=== PATIENT | male | born 1960 | race Caucasian/White ===

== ENCOUNTER 2020-10-08 08:32 | Outpatient (REF) | payer BC, SELFPAY ==
[2020-10-08 11:46] LABS: Alanine Aminotransferase 19 U/L (0-40); Albumin Level 4.2 g/dL (3.5-5.0); Alkaline Phosphatase 44 U/L (39-117); Anion Gap 12 (12-20); Aspartate Amino Transferase 23 U/L (5-37); Bilirubin Total 0.4 mg/dL (0.0-1.0); Blood Urea Nitrogen 15 mg/dL (9-16); Calcium 8.4 mg/dL (8.4-10.2); Carbon Dioxide 26 mmol/L (22-29); Chloride 107 mmol/L (96-108); Cholesterol 190 mg/dL; Estimated Glomerular Filt Rate > 60; Glucose Fasting 98 mg/dL (60-99); HDL Cholesterol 51 mg/dL; LDL Cholesterol Calculated 128 mg/dl; Potassium 4.2 mmol/l (3.3-5.1); Sodium 141 mmol/L (135-145); Total Protein 6.4 g/dL (6.5-8.0); Triglycerides 58 mg/dL
[2020-10-08 12:10] LABS: Prostate Specific Antigen Scr 0.65 ng/mL (<0.05-4.0); TSH reflex Free T4 1.34 mIU/mL (0.32-4.0)
[2020-10-08 12:24] LABS: Vitamin B12 928 pg/mL (200-900)
== END 2020-10-08 08:33 | disposition home or self-care (01) ==
LOC: HO.HMGCLDS 08:32
PROVIDERS: PCP Nurse Practitioner Family; Visit Provider Nurse Practitioner Family
DX: E53.8 Deficiency of other specified B group vitamins (principal); Z12.5 Encounter for screening for malignant neoplasm of prostate; Z00.00 Encounter for general adult medical examination without abnormal findings
CPT/HCPCS: 80053; 80061; 82607; 82746; 84153; 84443

== ENCOUNTER 2022-11-17 09:05 | Outpatient (REF) | payer OTHER, SELFPAY ==
[2022-11-17 11:37] LABS: MANUAL DIFF FLAG NO
[2022-11-17 11:50] LABS: Basophils Percent Auto 0.5 % (0-2); Eosinophils Absolute Auto 0.1 X10*3/uL (0.0-0.4); Eosinophils Percent Auto 2.3 % (0-4); Hematocrit 43.2 % (42.0-52.0); Hemoglobin 14.4 g/dl (14.0-18.0); Lymphocytes Percent Auto 27.2 % (20-40); Mean Corpuscular HGB Conc 33.3 g/dl (31.0-36.0); Mean Platelet Volume 10.8 fL (9.4-12.4); Monocytes Absolute Auto 0.6 X10*3/uL (0.1-1.2); Monocytes Percent Auto 14.6 % (2-11); Neutrophils Absolute Auto 2.1 x10*3/uL (2.0-8.3); Neutrophils Percent Auto 55.4 % (45-73); Platelet Count 144 X10*3/uL (160-400); White Blood Count 3.8 X10*3/uL (4.8-10.8)
[2022-11-17 11:56] LABS: INTERNATIONAL NORM RATIO 0.9 (0.9-1.1); Prothrombin Time 10.6 SEC (10.0-13.1)
[2022-11-17 13:06] LABS: Vitamin B12 277 pg/mL (200-900)
[2022-11-17 13:09] LABS: Vitamin D 25-OH Total 20.8 ng/mL (>30)
== END 2022-11-17 09:06 | disposition home or self-care (01) ==
LOC: HO.HMGCLDS 09:05
PROVIDERS: PCP Internal Medicine; Visit Provider Internal Medicine
DX: R53.83 Other fatigue (principal); D68.51 Activated protein C resistance; S00.262A Insect bite (nonvenomous) of left eyelid and periocular area, initial encounter; W57.XXXA Bitten or stung by nonvenomous insect and other nonvenomous arthropods, initial encounter
CPT/HCPCS: 36415; 82306; 82607; 85025; 85610

== ENCOUNTER 2022-11-20 09:46 | Outpatient (REF) | payer OTHER, SELFPAY ==
[2022-11-20 11:41] LABS: Prothrombin Time 11.3 SEC (10.0-13.1)
== END 2022-11-20 09:47 | disposition home or self-care (01) ==
LOC: HO.HMGCLDS 09:46
PROVIDERS: PCP Internal Medicine; Visit Provider Internal Medicine
DX: I26.99 Other pulmonary embolism without acute cor pulmonale (principal)
CPT/HCPCS: 36415; 85610

== ENCOUNTER 2022-11-21 08:38 | Outpatient (REF) | payer OTHER, SELFPAY ==
[2022-11-21 11:31] LABS: INTERNATIONAL NORM RATIO 1.1 (0.9-1.1); Prothrombin Time 12.3 SEC (10.0-13.1)
== END 2022-11-21 08:39 | disposition home or self-care (01) ==
LOC: HO.HMGCLDS 08:38
PROVIDERS: Visit Provider Internal Medicine
DX: R53.83 Other fatigue (principal); D68.51 Activated protein C resistance
CPT/HCPCS: 36415; 85610

== ENCOUNTER 2022-11-24 07:28 | Outpatient (REF) | payer OTHER, SELFPAY ==
[2022-11-24 12:21] LABS: INTERNATIONAL NORM RATIO 1.5 (0.9-1.1); Prothrombin Time 17.4 SEC (10.0-13.1)
== END 2022-11-24 07:29 | disposition home or self-care (01) ==
LOC: HO.HMGCLDS 07:28
PROVIDERS: Visit Provider Internal Medicine
DX: R53.83 Other fatigue (principal); D68.51 Activated protein C resistance
CPT/HCPCS: 36415; 85610

== ENCOUNTER 2023-08-31 07:15 | Outpatient (REF) | payer OTHER, SELFPAY ==
[2023-08-31 11:17] LABS: Basophils Percent Auto 0.6 % (0-2); Eosinophils Absolute Auto 0.1 X10*3/uL (0.0-0.4); Eosinophils Percent Auto 2.3 % (0-4); Hematocrit 44.8 % (42.0-52.0); Imm Gran Abs Auto 0.01 X10*3/uL (0.00-0.03); Imm Gran Pct Auto 0.3 % (0.0-0.4); Lymphocytes Absolute Auto 1.1 X10*3/uL (1.2-4.9); Lymphocytes Percent Auto 31.4 % (20-40); MANUAL DIFF FLAG NO; Mean Corpuscular HGB Conc 33.5 g/dl (31.0-36.0); Mean Corpuscular Hemoglobin 32.1 pg (27.0-33.0); Mean Corpuscular Volume 95.7 fL (80.0-98.0); Mean Platelet Volume 10.9 fL (9.4-12.4); Monocytes Absolute Auto 0.5 X10*3/uL (0.1-1.2); Monocytes Percent Auto 13.3 % (2-11); Neutrophils Absolute Auto 1.8 x10*3/uL (2.0-8.3); Neutrophils Percent Auto 52.1 % (45-73); Platelet Count 134 X10*3/uL (160-400); Red Blood Count 4.68 X10*6/uL (4.60-5.80); White Blood Count 3.5 X10*3/uL (4.8-10.8)
[2023-08-31 11:31] LABS: Alanine Aminotransferase 18 U/L (0-40); Albumin Level 4.2 g/dL (3.5-5.0); Alkaline Phosphatase 45 U/L (39-117); Anion Gap 10 (12-20); Aspartate Amino Transferase 26 U/L (5-37); Bilirubin Total 0.7 mg/dL (0.0-1.0); Blood Urea Nitrogen 14 mg/dL (9-16); Carbon Dioxide 28 mmol/L (22-29); Chloride 107 mmol/L (96-108); Cholesterol 167 mg/dL (<200); Estimated Glomerular Filt Rate > 60; Glucose Fasting 85 mg/dL (60-99); HDL Cholesterol 46 mg/dL (>40); LDL Cholesterol Calculated 109 mg/dL (<100); Potassium 4.1 mmol/L (3.3-5.1); Sodium 141 mmol/L (135-145); Total Protein 6.6 g/dL (6.5-8.0); Triglycerides 61 mg/dL (<150)
[2023-08-31 11:54] LABS: Vitamin D 25-OH Total 32.5 ng/mL (>30)
[2023-08-31 12:01] LABS: Prostate Specific Antigen Scr 0.85 ng/mL (<0.05-4.0); Vitamin B12 321 pg/mL (200-900)
== END 2023-08-31 07:16 | disposition home or self-care (01) ==
LOC: HO.HMGCLDS 07:15
PROVIDERS: PCP Internal Medicine; Visit Provider Internal Medicine
DX: Z00.00 Encounter for general adult medical examination without abnormal findings (principal); Z12.5 Encounter for screening for malignant neoplasm of prostate; E78.5 Hyperlipidemia, unspecified; R53.83 Other fatigue; D68.51 Activated protein C resistance; E55.9 Vitamin D deficiency, unspecified
CPT/HCPCS: 36415; 80053; 80061; 82306; 82607; 84153; 85025

== ENCOUNTER 2023-12-29 13:06 | Outpatient (REF) | payer OTHER, SELFPAY ==
--- NOTE | ~2023-12-29 | XR_ITS ---
EXAMINATION: XR LUMBOSACRAL SPINE CLINICAL INFORMATION: Low back pain. COMPARISON: CT abdomen/pelvis 12/08/2017. TECHNIQUE: Three views of the lumbosacral spine. FINDINGS: No evidence of acute compression deformity or subluxation. Moderate multilevel intervertebral disc height loss more noticeable at L3-L4 and L4-L5. Moderate to severe facet arthropathy at L4-L5 and L5-S1 leading to neural foraminal encroachment. Very prominent osteophytes at L3-L4 on the lateral view and L2-L3 on the frontal view. No significant paraspinal soft tissue abnormality. A 2 mm calcific body in the right upper quadrant could represent a renal calculus. Multiple surgical clips overlying the left pelvis. XR/XR lumbar spine 2-3V IMPRESSION: 1. No acute compression deformity or malalignment. 2. Moderate to severe lumbar spondylosis, more prominent from L4 through S1 where there is neural foraminal osseous encroachment. 3. A 2 mm calcific density in the right upper quadrant could represent a renal calculus, correlation with abdominal ultrasound as clinically warranted.
== END 2023-12-29 13:07 | disposition home or self-care (01) ==
LOC: HO.HMGCX 13:06
PROVIDERS: PCP Internal Medicine; Visit Provider Internal Medicine
DX: M54.50 Low back pain, unspecified (principal)
CPT/HCPCS: 72100

== ENCOUNTER → 2024-07-05 10:33 | Outpatient (RCR) | payer OTHER, SELFPAY ==
--- NOTE | 2021-07-09 08:12 | PM.HEMONCPN ---
Medical Summary - Medical Summary Date of Service: 07/09/21 Chief complaint: Follow-up for: Bilateral PE. Right leg DVT. Medical Summary: DIAGNOSES: 1. Right leg deep venous thrombosis. 2. Bilateral pulmonary embolism. CURRENT THERAPY: Coumadin. He takes 10 mg, sometimes alternating with 7.5 mg. INR usually runs between 2 and 3. Interval History Interval history: This is a pleasant 61 year-old gentleman here for a follow-up visit. He has been doing very well. Recently he has noticed some hoarseness of voice. He would like to see ENT, for that. He denies easy fatigability. Denies any lower extremity edema. No chest pain or trouble breathing. Abdominal pain nausea vomiting heartburn indigestion. Bowels are working without any gross blood in it. He enjoys a good appetite. He has lost weight. They have switched completely over to a vegan diet, couple years ago. He was 215 lbs, 6 years ago, now down to 177 lb. He has actually started biking with his . He enjoys that. He is in good spirits. Rest of the review of systems is unremarkable. Previous history: He had hernia surgery back in December,. It went well. He is just tired of wearing the mask. 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 Review of Systems - Constitutional Reports no additional constitutional complaints - Eyes Reports no additional eye complaints - ENT Reports no additional ear, nose, mouth, and throat complaints, Reports hoarseness - Cardiovascular Reports no additional cardiovascular complaints Comments: Hoarseness of voice. - Respiratory Reports no additional respiratory complaints - Gastrointestinal Reports no additional gastrointestinal complaints - Genitourinary Genitourinary: Reports no additional male genitourinary complaints - Musculoskeletal Reports no additional musculoskeletal complaints - Integumentary/Breasts Skin/Breast: Reports no additional skin complaints - Neurologic Reports no additional neurologic complaints - Psychiatric Reports no additional psychiatric complaints - Endocrine Reports no additional endocrine complaints - Hematologic/Lymphatic Reports no additional hematologic/lymphatic complaints - Allergic/Immunologic Reports no additional allergic/immunologic complaints REPLACED BY [facility] Medical History: Medical History (Last Updated 10/08/20 @ 08:21 by Jony Porras, [facility]) Factor V Leiden Hyperlipidemia Kidney stones Lumbar spondylolysis Pulmonary embolism Vitamin B12 deficiency Vitamin D deficiency Functional capacity: independent ambulation Patient : No Family History: Family History (Last Reviewed 10/08/20 @ 08:16 by CYNTHIA Gates) Father HTN (hypertension) Stroke Mother Breast cancer Surgical History: Surgical History (Last Reviewed 10/08/20 @ 08:16 by CYNTHIA Gates) H/O arthroscopy of knee H/O right inguinal hernia repair H/O superior vena cava filter placement Hx of tonsillectomy Social History: Social History (Last Reviewed 10/08/20 @ 08:16 by CYNTHAI Gates) Alcohol History: Alcohol intake: current Alcohol History Details: Alcohol intake frequency: a few times a month Nutrition Assessment: Patient : No Oncology Screenings - ECOG Performance Status ECOG Performance Status: 0 Home Medications and Allergies Home Medications Medication Instructions Recorded Confirmed Type cyanocobalamin (vitamin B-12) 1,000 mcg PO DAILY 07/09/21 07/09/21 History 1,000 mcg tablet (Vitamin B-12) Allergies Allergy/AdvReac Type Severity Reaction Status Date / Time shellfish derived Allergy Unknown HIVES Verified 07/09/21 08:17 shell fish Allergy Unknown hives Uncoded 07/09/21 08:17 shellfish Allergy Unknown hives Uncoded 07/09/21 08:17 Exam - Constitutional Present: no acute distress - Routine HEENT Exam Head: Present: normal inspection Eye: Present: normal appearance ENT: Present: mucous membranes moist - Routine Neck Exam Present: full ROM - Routine Respiratory Exam Present: CTAB - Routine Cardiovascular Exam Cardiovascular: Present: RRR, S1, S2 - Routine Abdominal Exam Present: soft, nontender - Routine Extremities Exam Present: nontender - Routine Back/Spine/Pelvis Exam Back/Spine: Present: full ROM - Routine Skin Exam Present: intact - Routine Neurological Exam Present: alert, oriented X3 - Routine Psychiatric Exam Present: normal affect Data - Labs CBC & Chem 7: 07/09/21 08:40 07/09/21 08:40 Assessment and Plan Patient Active problem list reviewed?: Yes (1) Pulmonary embolism Status: Acute Assessment and plan: 61 year-old gentleman, with history of bilateral PE and right leg DVT. He had an IVC filter, however that was removed by Dr. Mccarty, back in February of 2016. He had to go on Lovenox bridge, to facilitate that. Currently he remains on the Coumadin therapy. He has the machine at home and he monitors it himself. Most of the time his INR is between 2 and 3. He takes 10 mg of Coumadin on most days, occasionally he takes 7.5mg, if INR is over 3. He does have underlying hypercoagulable state: Heterozygous prothrombin mutation as well as heterozygous factor V Leiden mutation. His sister has the same thing. She has had 2 DVTs and is on long-term anticoagulations. A brother has it too but he has not had any clots, so is not taking any blood thinners. His son was recently found to have the same. He had herniorrhaphy December 30, 2019. Everything went well. I rechecked his ultrasound of the right leg, back in October 2016. This revealed no evidence of DVT involving the right lower extremity. He is feeling very well. Database: LFTs today: 0.8/41/. His D-dimer is <200. I did offer to switch him over to a NOAC, Eliquis. He said he will think about it. He was given information on it. Recently he has developed some hoarseness. PLAN: I will refer him for further ENT evaluation. Appointment is set up with Dr. Luiz Chris were 09/23 at 10:00 AM, however he can call the office to see if there is any cancellations before that. At this point the plan is for him to stay on the anticoagulation therapy, on a mcfp basis. He will consider switching to a NOAC and let me know if he decides. He will return in 12 months for a followup visit. Thanks, CC: Faraz Ko. Dr. Jaskaran Chris. - Time Spent With Patient Time Spent with Patient (in minutes): 30
[2021-07-09 08:14] VITALS: BP 136/69; PULSE 64; RESP 18; TEMP 36; O2SAT 98; BMI 25.4
--- NOTE | 2021-07-09 08:27 | MHC.HEMONC ---
Pt here for Hem follow up with Dr Ceballos. Clinical summary updated by nurse. Pt states he feels well today. Provider into see pt. Follow up appointment scheduled. Discharge packet given.
[2021-07-09 08:56] LABS: Basophils Percent Auto 0.6 % (0-2); Eosinophils Absolute Auto 0.1 X10*3/uL (0.0-0.4); Eosinophils Percent Auto 2.2 % (0-4); Imm Gran Abs Auto 0.01 X10*3/uL (0.00-0.03); Imm Gran Pct Auto 0.3 % (0.0-0.4)
[2021-07-09 08:58] LABS: Hematocrit 41.9 % (42-52); Hemoglobin 14.2 g/dl (14.0-18.0); Lymphocytes Absolute Auto 0.8 X10*3/uL (1.2-4.9); Lymphocytes Percent Auto 26.1 % (20-40); Mean Corpuscular HGB Conc 33.9 g/dl (31.0-36.0); Mean Corpuscular Hemoglobin 32.5 pg (27.0-33.0); Mean Corpuscular Volume 95.9 fL (80-98); Mean Platelet Volume 10.2 fL (9.4-12.4); Monocytes Absolute Auto 0.5 X10*3/uL (0.1-1.2); Monocytes Percent Auto 14.9 % (2-11); Neutrophils Absolute Auto 1.8 X10*3/uL (2.0-8.3); Neutrophils Percent Auto 55.9 % (45-73); Platelet Count 139 X10*3/uL (160-400); Red Blood Count 4.37 X10*6/uL (4.60-5.80); Red Cell Distribution Width 13.4 % (11.0-16.0); White Blood Count 3.2 X10*3/uL (4.8-10.8)
[2021-07-09 08:59] LABS: MANUAL DIFF FLAG NO
[2021-07-09 09:04] LABS: D Dimer < 200 NG/ML
[2021-07-09 09:25] LABS: Alanine Aminotransferase 19 U/L (0-40); Alkaline Phosphatase 41 U/L (39-117); Anion Gap 9 (12-20); Aspartate Amino Transferase 19 U/L (5-37); Bilirubin Total 0.8 mg/dL (0.0-1.0); Blood Urea Nitrogen 14 mg/dL (9-16); Calcium 8.8 mg/dL (8.4-10.2); Carbon Dioxide 27 mmol/L (22-29); Chloride 111 mmol/L (96-108); Creatinine Clr Calc Pharmacy 108.3; Estimated Glomerular Filt Rate > 60; Glucose Random 98 mg/dL (60-115); Sodium 143 mmol/L (135-145)
== END | disposition home or self-care (01) ==
LOC: HO.ONC 07-09 07:59
PROVIDERS: PCP Internal Medicine; Visit Provider Internal Medicine Medical Oncology
DX: Z86.711 Personal history of pulmonary embolism (principal); Z86.718 Personal history of other venous thrombosis and embolism; D68.51 Activated protein C resistance; D68.52 Prothrombin gene mutation; Z79.01 Long term (current) use of anticoagulants
CPT/HCPCS: 36415; 80053; 85025; 85379; 99214

== ENCOUNTER 2024-11-28 07:37 | Outpatient (REF) | payer MEDICARE, SELFPAY ==
--- OUTSIDE RECORDS SUMMARY | 2024-11-28 07:40 | XMS_ITS | Clinical Summary ---
Author Organization [facility] Address [address] [place] [address] Care Team Providers Care Air Saw Operator Name Role Phone Eliecer Ko Primary Care Provider [phone] Allergies No known active allergies Medications No known medications Active Problems No known active problems Family History Medical History Relation Name Comments Factor IX deficiency Brother Factor IX deficiency Father Factor IX deficiency Mother Factor IX deficiency Sister Relation Name Status Comments Brother Father Mother Sister Social History Tobacco Use Types Packs/Day Years Used Date Smoking Tobacco: Never Smokeless Tobacco: Never Tobacco Cessation:Counseling Given: Not Answered Sex and Gender Information Value Date Recorded Sex Assigned at Not on file Legal Sex Male 11:38 AM EDT Gender Identity Not on file Sexual Orientation Not on file Plan of Treatment Health Maintenance Due Date Last Done Comments Cologuard 1959 Colon Cancer Screening 1959 Colonoscopy 1959 FOBT / Fit Test 1959 HIV Screening 1959 Hepatitis C Screening 1959 Sigmoidoscopy 1959 Zoster Vaccines (1 of 2) 2009 Pneumococcal Vaccine: 65+ Years (1 of 1 - PCV) 2024 COVID-19 Vaccine ( season) 2024 11/02/2021, 03/05/2021, 02/12/2021 Influenza Vaccine (#1) 2024 , 08/28/2020, 08/17/2019, Additional history exists Alcohol/Substance Use Screening 10/26/2024 Depression Screening and Follow-Up 10/26/2024 Health Care Proxy Review 10/26/2024 Social Drivers of Health Annual Screening 10/26/2024 DTaP,Tdap,and Td Vaccines (2 - Td or Tdap) 12/08/2028 12/08/2018 RSV Vaccine (60+ years old and patients) (1 - 1-dose 75+ series) 2034 Hepatitis B Vaccines Aged Out No long er eligible based on patient's age to complete this topic Insurance [facility] Care Teams Air Saw Operator Relationship Specialty Start Date End Date Eliecer Ko [address] [place] [phone] PCP - General Internal Medicine 07/25/22
--- OUTSIDE RECORDS SUMMARY | 2024-11-28 07:40 | XMS_ITS | Referral Summary ---
Author Organization [facility] Address [address] [place] [address] Care Team Providers Care Pipefitter Helper Name Role Phone StefaniEliecer Primary Care Provider [phone] Allergies No known active allergies Medications No known medications Active Problems No known active problems Social History Tobacco Use Types Packs/Day Years Used Date Smoking Tobacco: Never Smokeless Tobacco: Never Tobacco Cessation:Counseling Given: Not Answered Sex and Gender Information Value Date Recorded Sex Assigned at Not on file Legal Sex Male 11:38 AM EDT Gender Identity Not on file Sexual Orientation Not on file Plan of Treatment Not on file Insurance [employer] Care Teams Pipefitter Helper Relationship Specialty Start Date End Date Eliecer Ko [address] [place] [id number] PCP - General Internal Medicine 07/25/22
[2024-11-28 10:25] LABS: MANUAL DIFF FLAG NO
[2024-11-28 10:33] LABS: Basophils Percent Auto 1.1 % (0-2); Eosinophils Absolute Auto 0.1 X10*3/uL (0.0-0.4); Eosinophils Percent Auto 2.4 % (0-4); Hematocrit 45.6 % (42.0-52.0); Hemoglobin 15.4 g/dl (14.0-18.0); Imm Gran Abs Auto 0.02 X10*3/uL (0.00-0.03); Imm Gran Pct Auto 0.5 % (0.0-0.4); Lymphocytes Absolute Auto 1.3 X10*3/uL (1.2-4.9); Lymphocytes Percent Auto 33.9 % (20-40); Mean Corpuscular HGB Conc 33.8 g/dl (31.0-36.0); Mean Corpuscular Volume 94.6 fL (80.0-98.0); Mean Platelet Volume 10.5 fL (9.4-12.4); Monocytes Absolute Auto 0.4 X10*3/uL (0.1-1.2); Monocytes Percent Auto 10.8 % (2-11); Neutrophils Percent Auto 51.3 % (45-73); Platelet Count 152 X10*3/uL (160-400); Red Blood Count 4.82 X10*6/uL (4.60-5.80); Red Cell Distribution Width 13.4 % (11.0-16.0); White Blood Count 3.8 X10*3/uL (4.8-10.8)
[2024-11-28 11:03] LABS: Alanine Aminotransferase 68 U/L (0-40); Albumin Level 4.2 g/dL (3.5-5.0); Alkaline Phosphatase 53 U/L (39-117); Anion Gap 9 (12-20); Aspartate Amino Transferase 44 U/L (5-37); Bilirubin Total 0.6 mg/dL (0.0-1.0); Blood Urea Nitrogen 14 mg/dL (9-16); Carbon Dioxide 26 mmol/L (22-29); Chloride 110 mmol/L (96-108); Cholesterol 180 mg/dL (<200); Estimated Glomerular Filt Rate > 60; Glucose Fasting 96 mg/dL (60-99); HDL Cholesterol 39 mg/dL (>40); LDL Cholesterol Calculated 123 mg/dL (<100); Potassium 4.1 mmol/L (3.3-5.1); Sodium 141 mmol/L (135-145); Total Protein 7.2 g/dL (6.5-8.0); Triglycerides 94 mg/dL (<150)
[2024-11-28 12:28] LABS: Prostate Specific Antigen 1.13 ng/mL (<0.05-4.0)
[2024-12-02 11:43] LABS: Vitamin D 25-OH, D2 <4 ng/mL; Vitamin D 25-OH, D3 24 ng/mL; Vitamin D 25-OH, Total 24 ng/mL (30-100)
== END 2024-11-28 07:38 | disposition home or self-care (01) ==
LOC: HO.HMGCLDS 07:37
PROVIDERS: PCP Internal Medicine; Visit Provider Internal Medicine
DX: Z00.00 Encounter for general adult medical examination without abnormal findings (principal); Z12.5 Encounter for screening for malignant neoplasm of prostate; R53.83 Other fatigue
CPT/HCPCS: 36415; 80053; 80061; 82306; 84153; 85025; 86787

== ENCOUNTER 2025-03-07 10:11 | Outpatient (AMB) | payer MEDICARE, SELFPAY ==
--- NOTE | 2025-03-07 10:13 | A.OFFPC_ITS ---
Vital Signs 03/07/25 10:18 Height 5 ft 10 in Weight 187 lb BMI 26.8 BP 120/59 L Respiration 16 Pulse 60 Pulse Source Pulse Oximeter Temp 97.8 F Temp Source Temporal Artery Scan Pulse Oximetry (%) 96 Oxygen Delivery Method Room Air Intake Visit Reasons: 2 month f/u - see comments Vascular Manager Required: No Accompanied by: Self / Same As Patient Allergies shellfish derived Allergy (Unknown, Verified 03/07/25 10:13) HIVES shell fish Allergy (Unknown, Uncoded 03/07/25 10:13) hives shellfish Allergy (Unknown, Uncoded 03/07/25 10:13) hives Tobacco use date assessed: 03/07/25 Fall risk assessment: No Falls in past year Last assessed Fall Risk: 03/07/25 Dental Screening Dental Screen Date: 03/07/25 Did you have a dental visit in the last 12 months?: Yes Did you have a dental problem in the last 6 months where you did not have access to dental care?: No Was dental information given to patient?: Patient has dentist HPI 2 month f/u - see comments HPI Details 64 yr old male presents to the office to establish his care here. He is transferring from Dr Freeman. On Coumadin due to coagulation gene deficiency. History of DVT and pulmonary embolism on lifelong anticoagulation. Uses coumadin and has a device at home to check INR. Scheduled for colonoscopy [facility] Medical History Lumbar spondylolysis Kidney stones Pulmonary embolism Vitamin B12 deficiency Vitamin D deficiency Factor V Leiden Hyperlipidemia Surgical History History of colonoscopy (~10/31/19) H/O right inguinal hernia repair Hx of tonsillectomy H/O superior vena cava filter placement H/O arthroscopy of knee Family History Father HTN (hypertension) Stroke Mother Breast cancer Social History Housing: House Alcohol intake: current Alcohol intake frequency: holidays/special occasions only Patient Tobacco Use Status: Never used Tobacco service: No Current occupational status: retired Cognitive needs: No Hearing needs: No Vision needs: Yes (rx glasses) Questionnaire PHQ-9 Over the last 2 weeks, how often have you been bothered by any of the following problems? 1. Little interest or pleasure in doing things: not at all 2. Feeling down, depressed, or hopeless: not at all 3. Trouble falling or staying asleep, or sleeping too much: not at all 4. Feeling tired or having little energy: not at all 5. Poor appetite or overeating: not at all 6. Feeling bad about yourself - or that you are a failure or have let yourself or your family down: not at all 7. Trouble concentrating on things, such as reading the newspaper or watching television: not at all 8. Moving or speaking so slowly that other people could have noticed. Or the opposite - being so fidgety or restless that you have been moving around a lot more than usual: not at all 9. Thoughts that you would be better off or of hurting yourself in some way: not at all Total score: 0 Depression Screening Interpretation: Negative Depression Screening Done: Yes Source: Developed by Drs. Robby Veliz, Dionna Powell, Pa Solis and colleagues, with an educational maricarmen from [employer]. Thrive Questionnaire Date Thrive assessed: 03/07/25 I am a: Patient What is your living situation today?: I have a steady place to live Within the past 12 months, did the food you bought not last and you didn't have the money to get more?: Never true Within the past 12 months, did you worry whether your food would run out before you got money to buy more?: Never true Do you have trouble paying for medicines?: No Do you have trouble getting transportation to medical appointments?: No Do you have trouble paying your heating and electricity bill?: No Do you have trouble taking care of your child, family member or friend?: No Do you have trouble with day-to-day activities such as bathing, preparing meals, shopping, managing finances, etc.?: No Are you currently unemployed and looking for a job?: No Are you interested in more education?: No Please select the resources that you would like help with: None Currently or been in a relationship where the following occur: No concerns reported THRIVE Score: 0 AUDIT C Alcohol Use Questionnaire (AUDIT-C) 1. How often do you have a drink containing alcohol?: Monthly or less 2. How many drinks containing alcohol do you have on a typical day when you are drinking?: 1 or 2 3. How often do you have six or more drinks on one occasion?: Never Total Score: 1 AMEENA-7 AMB Questionnaire AMEENA-7 Date AMEENA - 7 assessed: 03/07/25 Feeling nervous, anxious, or on edge: 0 = Not at all Not being able to stop or control worryin = Not at all Worrying too much about different things: 0 = Not at all Trouble relaxin = Not at all Being so restless that it is hard to sit still: 0 = Not at all Becoming easily annoyed or irritable: 0 = Not at all Feeling afraid as if something awful might happen: 0 = Not at all Total AMEENA-7 score (0-4 normal; 5-9 mild; 10-14 moderate; 15-21 severe): 0 Source: Developed by Drs. Robby Veliz, Dionna Powell, Pa Solis and colleagues, with an educational maricarmen from [employer]. Physical exam (Primary Care) Vital Signs: Last Vital Signs Temp 97.8 F 03/07/25 10:18 Pulse 60 03/07/25 10:18 Resp 16 03/07/25 10:18 BP 120/59 L 03/07/25 10:18 Pulse Ox 96 03/07/25 10:18 Oxygen Delivery Method Room Air 03/07/25 10:18 Care Plan Goal for BP management: BP is in range BMI result Body Mass Index 26.8 Tobacco/Smoking Status: Tobacco use Status Tobacco use date assessed 03/07/25 03/07/25 10:15 Patient Tobacco Use Status Never used Tobacco 03/07/25 10:24 PHQ-9: PHQ-9 Score PHQ-9: Total score 0 03/07/25 11:00 Depression Screening Interpretation: Negative Thrive Assessment: Date of Thrive Assessment Date Thrive assessed 03/07/25 03/07/25 10:15 Currently or been in a relationship where the following occur: No concerns reported ACP: Advance Care Planning discussion: Exists, not on file Date of discussion: 03/07/25 Who was present: Patient Forms completed: Health Care Proxy Time spent: 1-15 minutes, not on file Actual minutes spent: 5 Const General: cooperative and healthy appearing Nutritional Appearance: well nourished Orientation/consciousness: patient oriented x3 Limitations: no limitations HENMT Head: Yes normal to inspection Eyes General: appearance normal, both eyes and all related structures Neck Neck: Yes normal visual inspection Chest Chest palpation & inspection: normal palpation of entire chest wall Resp Effort & Inspection: normal respiratory effort Neuro General: patient oriented x3 Coding Level of Care Code New Pt Level 4 (10601) Complex EM visit Add On G2211 Diagnoses Pulmonary embolism I26.99 Additional Codes Vital Signs *Quality* - Advance Care Planning discussion: Exists, not on file ([id number]) Vital Signs *Quality* - Time spent: 1-15 minutes, not on file ([id number]) Assessment & Plan Assessment & Plan (1) Pulmonary embolism: Code(s): I26.99 - Other pulmonary embolism without acute cor pulmonale Category: Medical Plan: Coumadin to be continued.
[2025-03-07 10:18] VITALS: BP 120/59; PULSE 60; RESP 16; TEMP 36.6; O2SAT 96; BMI 26.8
--- OUTSIDE RECORDS SUMMARY | 2025-03-07 11:13 | XMS_ITS | Referral Summary ---
Author Organization [facility] Address [address] [place] [address] Care Team Providers Care Clinical Law Professor Name Role Phone StefaniEliecer Primary Care Provider [phone] Allergies No known active allergies Medications No [...] Not on file Insurance [employer] Care Teams Clinical Law Professor Relationship Specialty Start Date End Date Eliecer Ko [address] [place] [id number] PCP - General Internal Medicine 07/25/22
--- OUTSIDE RECORDS SUMMARY | 2025-03-07 11:13 | XMS_ITS | Clinical Summary ---
Author Organization [facility] Address [address] [place] [address] Care Team Providers Care Training Designer Name Role Phone Eliecer Ko Primary Care Provider [phone] Allergies No known active allergies Medications No [...] 1959 Hepatitis C Screening 1959 Sigmoidoscopy 1959 Pneumococcal Vaccine: 50+ Years (1 of 1 - PCV) 2009 Zoster Vaccines (1 of 2) 2009 COVID-19 Vaccine ( season) 2024 11/02/2021, 03/05/2021, 02/12/2021 Alcohol/Substance Use Screening 10/26/2024 Depression Screening and Follow-Up 10/26/2024 Health Care Proxy Review 10/26/2024 Social Drivers of Health Annual Screening 10/26/2024 Influenza Vaccine (Season Ended) 2025 07/24/2021, 08/28/2020, 08/17/2019, Additional history exists DTaP,Tdap,and Td Vaccines (2 - Td or Tdap) 12/08/2028 12/08/2018 RSV Vaccine (60+ years old and patients) (1 - 1-dose 75+ series) 2034 Hepatitis B Vaccines Aged Out No long er eligible based on patient's age to complete this topic Insurance [facility] Care Teams Training Designer Relationship Specialty Start Date End Date Eliecer Ko [address] [place] [id number] PCP - General Internal Medicine 07/25/22
== END 2025-03-07 10:54 | disposition home or self-care (01) ==
LOC: HO.HMCSH 10:11
PROVIDERS: PCP Internal Medicine; Visit Provider Internal Medicine
DX: I26.99 Other pulmonary embolism without acute cor pulmonale (principal); Z00.00 Encounter for general adult medical examination without abnormal findings

== ENCOUNTER → 2025-03-07 10:11 | Outpatient (BNVA) | payer MEDICARE, SELFPAY | PROVIDERS: PCP Internal Medicine; Visit Provider Internal Medicine | DX: I26.99 Other pulmonary embolism without acute cor pulmonale (principal); Z79.01 Long term (current) use of anticoagulants | CPT/HCPCS: 96127; 99202 ==

== ENCOUNTER 2025-06-03 00:34 | Emergency (ER) | payer MEDICARE, SELFPAY ==
--- NOTE | ~2025-06-03 | CT_ITS ---
CLINICAL HISTORY: R flank pain, hx stones CT abdomen and pelvis without contrast Comparison: None provided Findings: Mild dependent subsegmental atelectasis is seen in bilateral lower lobes. 2.7 mm right distal ureteral stone is present with mild right hydronephrosis and asymmetric right perinephric stranding. An additional punctate 1-2 mm right renal stone is seen. 1.0 cm right renal cyst is noted. 1.0 cm left renal cyst is seen. The noncontrast appearance of the liver, gallbladder, pancreas, spleen, and bilateral adrenal glands is within normal limits. Colonic diverticulosis is present. There is no evidence of bowel obstruction. The appendix appears normal. There is no pneumoperitoneum. The urinary bladder appears normal. The prostate gland is enlarged in size with a transverse diameter of 5.5 cm. There is no adenopathy. Moderate degenerative changes are seen in the spine. No acute osseous abnormality is identified. No aggressive lytic or blastic lesion is seen. IMPRESSION: 1. 2.7 mm obstructive right distal ureteral stone with mild right hydronephrosis and asymmetric right perinephric stranding. An additional punctate 1-2 mm right renal stone is present. 2. Enlarged prostate gland. 3. Colonic diverticulosis. This document has been electronically signed by: Royal Angeles on 06/03/2025 07:30:54
[2025-06-03 00:51] VITALS: BP 126/70; PULSE 53; RESP 18; TEMP 36.6; O2SAT 97; BMI 26.9
--- NOTE | 2025-06-03 01:03 | PC.NURSE ---
Pt reporting, nausea, vomiting and R-flank pain 06/04. Pt presemted with bucket with vomit and reporting nausea in triage. Zofran given in triage.
[2025-06-03 01:48] LABS: Appearance Urine Clear; Glucose Urine UA Negative (Negative); PH 5.5 (5.0-9.0); Specific Gravity - Urine 1.025 (1.005-1.025)
[2025-06-03 01:49] LABS: Hematocrit 42.4 % (42.0-52.0); Hemoglobin 14.7 g/dl (14.0-18.0); Mean Corpuscular HGB Conc 34.7 g/dl (31.0-36.0); Mean Corpuscular Hemoglobin 32.7 pg (27.0-33.0); Mean Corpuscular Volume 94.4 fL (80.0-98.0); NRBC Abs Auto 0.000 X10*3/uL (0.0-0.012); NRBC Pct Auto 0.0 /100WBC (0.0-0.2); Platelet Count 126 X10*3/uL (160-400); Red Blood Count 4.49 X10*6/uL (4.60-5.80); White Blood Count 9.5 X10*3/uL (4.8-10.8)
[2025-06-03 02:02] LABS: Alanine Aminotransferase 27 U/L (0-40); Albumin Level 4.3 g/dL (3.5-5.0); Alkaline Phosphatase 49 U/L (39-117); Anion Gap 13 (12-20); Aspartate Amino Transferase 30 U/L (5-37); Blood Urea Nitrogen 23 mg/dL (9-16); Calcium 8.6 mg/dL (8.4-10.2); Carbon Dioxide 22 mmol/L (22-29); Chloride 113 mmol/L (96-108); Creatinine Clr Calc Pharmacy 66.3; Estimated Glomerular Filt Rate > 60; Lipase 43 U/L (8-78); Magnesium 2.3 mg/dL (1.6-2.6); Potassium 4.6 mmol/L (3.3-5.1); Sodium 143 mmol/L (135-145); Total Protein 6.5 g/dL (6.5-8.0)
--- OUTSIDE RECORDS SUMMARY | 2025-06-03 02:07 | XMS_ITS | Referral Summary ---
Author Organization [facility] Address [address] [place] [address] Care Team Providers Care Metal Technician Name Role Phone StefaniEliecer Primary Care Provider [phone] Allergies No known active allergies Medications No [...] Not on file Insurance [employer] Care Teams Metal Technician Relationship Specialty Start Date End Date Eliecer Ko [address] [place] [id number] PCP - General Internal Medicine 07/25/22
--- OUTSIDE RECORDS SUMMARY | 2025-06-03 02:07 | XMS_ITS | Patient Health Record ---
Author Organization [facility] Joslyn serrato [place] Address [address] [facility] [place] [address] Care Team Providers Care Rodbuster Name Role Phone Jerica Wilson Primary Care Provider Sunny Mancia Unavailable [phone] Allergies Allergen (clinical drug ingredient) Drug/Non Drug Allergy documented on EMR Reaction Allergy Type Onset Date Status Shrimp/Shell Fish neck hives Drug Allergy Active Reason For Referral No Information Medications Medication SIG (Take, Route, Fr equency, Duration) Notes Start Date End Date Status Physical Therapy 3-4x per week for 3-4 weeks 03/23 Unknown Warfarin Sodium 10 MG 1 tablet Orally On ce a day; Duration: 30 day(s) Active Social History Tobacco Use: Social History Observation Description Date Details (start date - stop date) Never Smoker NA - NA Tobacco Use/Smoking Question Answer Notes Are you a: nonsmoker Alcohol Screen Question Answer Notes Did you have a drink containing alcohol in the p ast year? Yes Points 0 Interpretation Negative Plan Of Treatment Pending Test Test Name Order Date X ray : Foot, left 2V 03/23/2014 Insurance Providers Payer Name Payer Address Payer Phone Subscriber Number Group Number Insured Name Patient Relationship to Insured Coverage Start Date Coverage End Date [facility] [address] [place] [address] [id number] [address]ardo sánchez Self - patient is the insured 9 Medical (General) History Medical History History ICD Code Mumps Vascular phlebitis (clots) Surgical History Surgery Date(Month/Year) hernia right knee arthroscopy tonsillectomy 1969 colonoscopy 10/31/2019 Hospitalization History Reason Date(Month/Year) [facility]- DVT 8 day stay 2015
[2025-06-03 02:11] VITALS: BP 126/69; PULSE 56; RESP 17; TEMP 36.8; O2SAT 95
--- NOTE | 2025-06-03 05:53 | ED_ITS ---
HPI - Abdominal Pain General Chief Complaint: Abdominal Pain Stated Complaint: n/v, possible kidney stone Time Seen by Provider: 06/03/25 05:10 Source: patient Mode of arrival: ambulatory Limitations: no limitations History of Present Illness ED Provider: Dr. Jacquelyn Miles HPI narrative: Patient comes to the emergency room complaining of right-sided flank pain nausea and vomiting that started a few hours ago prior to arrival. Patient states that he has history of kidney stones in the past. This time he has not seen any blood in the urine. However, patient complaining that it feels the same. Patient takes Coumadin for factor 5 Leiden deficiency, patient states that he has history of pulmonary embolisms more than 10 years ago. Patient denies any recent trauma or heavy lifting. Denies blood in the urine or stool/black stool Related Data Home Medications ?Medication ?Instructions ?Recorded ?Confirmed cyanocobalamin (vitamin B-12) 1,000 mcg PO DAILY 07/0907/09/21 1,000 mcg tablet (Vitamin B-12) warfarin 1 mg tablet 1 mg PO DAILY 03/07/25 warfarin 5 mg tablet mg PO 03/07/25 Previous Rx's ?Medication ?Instructions ?Recorded ondansetron HCl 4 mg tablet 4 mg PO Q6H PRN nausea and 06/03/25 vomiting #14 tabs prednisone 10 mg tablet 10 mg PO DAILY #3 tabs 06/03 tamsulosin 0.4 mg capsule 0.4 mg PO DAILY #14 caps 07/20 tramadol 50 mg tablet 50 mg PO BID PRN pain #7 tab s 06/03/25 Allergies Allergy/AdvReac Type Severity Reaction Status Date / Time shellfish derived Allergy Unknown HIVES Verified 06/03/25 00:54 shell fish Allergy Unknown hives Uncoded 06/03/25 00:54 shellfish Allergy Unknown hives Uncoded 06/03/25 00:54 Review of Systems Review of Systems Constitutional : No Weight loss, No Fever, No Chills, No Night Sweats, No Fatigue, No Malaise ENT/Mouth : No Hearing loss, No Ear Pain, No Nasal Congestion, No Sinus Pain, No Hoarseness, No sore throat, No Rhinorrhea, No Swallowing Difficulty Eyes: No Eye Pain, No Swelling, No Redness, No Foreign Body, No Discharge, No Vision Changes Cardiovascular : No Chest Pain, No SOB, No Dyspnea on Exertion, No Orthopnea, No Edema, No Palpitations Respiratory : No Cough, No Sputum, No Wheezing, No Smoke Exposure, No Dyspnea Gastrointestinal : Complaining of nausea and vomit No Diarrhea, No Constipation, complaining of right-sided abdominal pain/right-sided flank pain Genitourinary : no irregular bleeding, No Dysuria, No Urinary Frequency, No Hematuria, No Urinary Incontinence, No Urgency, No Flank Pain, No Urinary Flow Changes, No Hesitancy Musculoskeletal : No joint pain, No Myalgias, No Joint Swelling Skin : No Skin Lesions, No rash Neuro : No Weakness, No Numbness, No Paresthesias, No Loss of Consciousness, No Dizziness, No Headache Psych : No Anxiety/Panic, No Depression, No SI/HI/AH/VH, No Social Issues, Heme/Lymph: No Bruising, No Bleeding,No Lymphadenopathy Endocrine : No Polyuria, No Polydipsia, No Temperature Intolerance PMFSH Past Medical History Medical History Lumbar spondylolysis Kidney stones Pulmonary embolism Vitamin B12 deficiency Vitamin D deficiency Factor V Leiden Hyperlipidemia Surgical History History of colonoscopy (~10/31/19) H/O right inguinal hernia repair Hx of tonsillectomy H/O superior vena cava filter placement H/O arthroscopy of knee Family History Family History Father HTN (hypertension) Stroke Mother Breast cancer Social History Social History Housing: House Alcohol intake: current Alcohol intake frequency: holidays/special occasions only Patient Tobacco Use Status: Never used Tobacco Smoked in Last 30 Days: No Use of substances other than those prescribed or required for medical reasons: No Advance Directives: No Advance Directives Information Provided: Yes service: No Current occupational status: retired Cognitive needs: No Hearing needs: No Vision needs: Yes (rx glasses) Physical Exam ED Exam Exam: Appearance: Alert. Oriented X3. Seems a bit uncomfortable Eyes: Pupils equal, round and reactive to light. ENT: Pharynx normal. Neck: Normal inspection. Neck supple. No lymph nodes noted. No crepitus CVS: Normal heart rate and rhythm. Pulses normal. Normal S1 and S2 Respiratory: No respiratory distress. Breath sounds normal. No Wheezing. No rales Abdomen: Soft and nontender. No rigidity. No distention. , mild CVA tenderness on the right side Skin: Skin warm and dry. Normal skin color. Normal skin turgor. Extremities: No lower extremity edema. No Lacerations. No Rash Neuro: Oriented X 3. No motor deficit. No sensory deficit. Moving all extremities. No slurred speech. CN 2 through 12 grossly intact Psych: calm, cooperative, normal affect Vital Signs: Vital Signs - 24 hr 06/03/25 00:51 06/03/25 02:11 06/03/25 06:09 Temperature 97.9 F 98.3 F 97.6 F Pulse Rate 53 56 60 Respiratory Rate 18 17 16 Blood Pressure 126/70 126/69 103/58 L Pulse Oximetry 97 95 95 Oxygen Delivery Method Room Air Room Air Room Air BMI result Body Mass Index 26.9 Course Course Course Narrative: Patient reports that the right-sided flank pain that he is feeling is very similar to previous kidney stones that he has had. However, patient reports that the pain is worse if he starts moving around and walking. Patient denies any trauma All of patient's labs and imaging pending Patient receive IV Zofran and pain,(patient takes warfarin) Medical Decision Making Medical Decision Making [facility] Narrative: My interpretation of labs: No significant abnormality in patient's hematology or chemistry, urinalysis negative for UTI CT scan shows a 2.7 mm stone in the right distal ureter At this time, patient states that he feels much better after receiving pain medication and nausea med Patient will follow-up with his PCP and Urology Patient's INR is therapeutic. Patient has no chest pain or shortness of breath, PE is not suspected. Differential Diagnosis Differential Diagnoses: The differential diagnosis associated with the presentation includes (Pyelonephritis, ureterolithiasis, renal infarct, musculoskeletal pain) Admission/Observation Consideration of admission/observation: Escalation of care including admission/observation considered (Given patient's presentation history, observation/admission was considered) Lab Data [facility] Lab Attestation statement: I reviewed the patient's lab results. 06/03/25 01:41 06/03/25 01:41 Labs: Lab Results 06/03/25 06/03/25 Range/Units 01:41 06:01 WBC 9.5 (4.8-10.8) X10*3/uL RBC 4.49 L (4.60-5.80) X10*6/uL Hgb 14.7 (14.0-18.0) g/dl Hct 42.4 (42.0-52.0) % MCV 94.4 (80.0-98.0) fL MCH 32.7 (27.0-33.0) pg MCHC 34.7 (31.0-36.0) g/dl RDW 13.7 (11.0-16.0) % Plt Count 126 L (160-400) X10*3/uL MPV 10.2 (9.4-12.4) fL Absolute Nucleated RBC 0.000 (0.0-0.012) X10*3/uL Nucleated RBC % (auto) 0.0 (0.0-0.2) /100WBC PT 26.8 H (10.9-12.4) SEC INR 2.3 H (0.9-1.1) Sodium 143 (135-145) mmol/L Potassium 4.6 (3.3-5.1) mmol/L Chloride 113 H (96-108) mmol/L Carbon Dioxide 22 (22-29) mmol/L Anion Gap 13 (12-20) BUN 23 H (9-16) mg/dL Creatinine 1.13 (0.5-1.4) mg/dL Estim Creat Clear Calc 66.3 Estimated GFR > 60 Random Glucose 124 H (60-115) mg/dL Calcium 8.6 (8.4-10.2) mg/dL Magnesium 2.3 (1.6-2.6) mg/dL Total Bilirubin 0.4 (0.0-1.0) mg/dL Direct Bilirubin 0.1 (0.0-0.5) mg/dL AST 30 (5-37) U/L ALT 27 (0-40) U/L Alkaline Phosphatase 49 (39-117) U/L Total Protein 6.5 (6.5-8.0) g/dL Albumin 4.3 (3.5-5.0) g/dL Lipase 43 (8-78) U/L Urine Color Yellow Urine Appearance Clear Urine pH 5.5 (5.0-9.0) Ur Specific [place] 1.025 (1.005-1.025) Urine Protein Negative (Neg-Trace) mg/dL Urine Glucose (UA) Negative (Negative) mg/dL Urine Ketones Trace (Negative) mg/dL Urine Blood Negative (Negative) Urine Nitrite Negative (Negative) Ur Leukocyte Esterase Negative (Negative) Independent Interpretation I performed an independent interpretation of an: CT Scan Radiology Impression Discussion of test interpretation with radiology: I have reviewed the radiologist's reading. Radiologist Impression: Mild dependent subsegmental atelectasis is seen in bilateral lower lobes. 2.7 mm right distal ureteral stone is present with mild right hydronephrosis and asymmetric right perinephric stranding. An additional punctate 1-2 mm right renal stone is seen. 1.0 cm right renal cyst is noted. 1.0 cm left renal cyst is seen. The noncontrast appearance of the liver, gallbladder, pancreas, spleen, and bilateral adrenal glands is within normal limits. Colonic diverticulosis is present. There is no evidence of bowel obstruction. The appendix appears normal. There is no pneumoperitoneum. The urinary bladder appears normal. The prostate gland is enlarged in size with a transverse diameter of 5.5 cm. There is no adenopathy. Moderate degenerative changes are seen in the spine. No acute osseous abnormality is identified. No aggressive lytic or blastic lesion is seen. IMPRESSION: 1. 2.7 mm obstructive right distal ureteral stone with mild right hydronephrosis and asymmetric right perinephric stranding. An additional punctate 1-2 mm right renal stone is present. 2. Enlarged prostate gland. 3. Colonic diverticulosis Medications Administered Discontinued Medications Generic Name Dose Route Start Last Admin Trade Name Freq PRN Reason Stop Dose Admin Morphine Sulfate 4 mg 06/03/25 05:19 06/03/25 05:52 Morphine Sulfate 4 Mg/Ml Cartridge IVPUSH 06/03/25 05:20 4 mg ONCE ONE Administration Protocol Ondansetron HCl 4 mg 06/03/25 00:57 06/03/25 01:00 Ondansetron Odt 4 Mg Tab.Rapdis TRANSLINGU 06/03/25 00:58 4 mg ONCE ONE Administration Prochlorperazine Edisylate 10 mg 06/03/25 05:19 06/03/25 05:52 Prochlorperazine Edisylate 10 Mg/2 Ml Vial IVPUSH 06/03/25 05:20 10 mg ONCE ONE Administration Critical Care Time Critical Care Time Critical Care Time: Yes Total Critical Care Time: 35 Attestation: I have personally provided critical care time. Time includes review of lab data, radiology results, discussion with consultants, and monitoring for potential decompensation. Intervention performed as documented. Discharge Plan Discharge Clinical Impression: Ureterolithiasis Patient Disposition: Home, Self-Care Instructions: Ureteral Stones (ED) Additional Instructions: Please follow-up with your primary care physician tomorrow. If you have any worsening or new symptoms, please return to the emergency room or call 911 Prescriptions: New tamsulosin 0.4 mg capsule 0.4 mg PO DAILY Qty: 14 0RF prednisone 10 mg tablet 10 mg PO DAILY Qty: 3 0RF ondansetron HCl 4 mg tablet 4 mg PO Q6H PRN (Reason: nausea and vomiting) Qty: 14 0RF tramadol 50 mg tablet 50 mg PO BID PRN (Reason: pain) Qty: 7 0RF No Action cyanocobalamin (vitamin B-12) [Vitamin B-12] 1,000 mcg Tablet 1,000 mcg PO DAILY warfarin 5 mg tablet PO warfarin 1 mg tablet 1 mg PO DAILY Print Language: [place]
[2025-06-03 06:09] VITALS: BP 103/58; PULSE 60; RESP 16; TEMP 36.4; O2SAT 95
[2025-06-03 06:12] LABS: INTERNATIONAL NORM RATIO 2.3 (0.9-1.1); Prothrombin Time 26.8 SEC (10.9-12.4)
[2025-06-03 08:09] VITALS: BP 95/56; PULSE 50; RESP 16; TEMP 36.8; O2SAT 95
== END 2025-06-03 08:10 | disposition home or self-care (01) ==
PROVIDERS: Emergency Provider Emergency Medicine
DX: N13.2 Hydronephrosis with renal and ureteral calculous obstruction (principal); R10.9 Unspecified abdominal pain; D68.51 Activated protein C resistance; Z87.442 Personal history of urinary calculi; Z86.711 Personal history of pulmonary embolism; Z79.01 Long term (current) use of anticoagulants
CPT/HCPCS: 36415; 74176; 80053; 81003; 82248; 83690; 83735; 85027; 85610; 96374; 96375; 99284; J0737; J2270

== ENCOUNTER → 2025-06-03 05:21 | Outpatient (BNV) | payer MEDICARE, SELFPAY | PROVIDERS: Emergency Provider Emergency Medicine; Visit Provider Radiology Vascular & Interventional Radiology | DX: N20.1 Calculus of ureter (principal); N40.0 Benign prostatic hyperplasia without lower urinary tract symptoms; K57.30 Diverticulosis of large intestine without perforation or abscess without bleeding | CPT/HCPCS: 74176 ==